=== PATIENT | male | born 1980 | race Caucasian/White ===

== ENCOUNTER 2017-08-28 18:00 | Emergency (ER) | payer OTHER ==
[2017-08-28 19:43] LABS: BASOPHILS # (AUTO) 0.1 10^3/uL (0.0-0.1); EOSINOPHILS # (AUTO) 0.2 10^3/uL (0.0-0.7); HGB - HEMOGLOBIN 14.2 g/dL (14.0-18.0); LYMPHOCYTES # (AUTO) 2.2 10^3/uL (1.5-3.5); LYMPHOCYTES % (AUTO) 29.1 %; MEAN CORPUSCULAR HGB CONC 32.9 g/dL (32.0-36.0); MEAN CORPUSCULAR VOLUME 94.1 fL (80.0-94.0); MEAN PLATELET VOLUME 8.1 fL (7.4-11.4); MONOCYTES # (AUTO) 0.6 10^3/uL (0.0-1.0); NEUTROPHILS # (AUTO) 4.5 10^3/uL (1.5-6.6); NEUTROPHILS % (AUTO) 58.9 %; PLT - PLATELET COUNT 268 10^3/uL (130-450); RED BLOOD COUNT 4.57 10^6/uL (4.70-6.10); WHITE BLOOD COUNT 7.7 x10^3/uL (4.8-10.8)
[2017-08-28] MEDS ORDERED: ALBUTEROL NEB 2.5 MG/3 ML INH STA (19:44)
[2017-08-28 19:46] LABS: MUDS CUTOFF CONCENTRATIONS CUTOFF CONC BELOW:
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
[2017-08-28] MEDS ORDERED: NICOTINE 14 MG PATCH TOP STA (19:55)
[2017-08-28 19:58] LABS: ALBUMIN 4.4 g/dL (3.2-5.5); ALBUMIN/GLOBULIN RATIO 1.5 (1.0-2.2); ALKALINE PHOSPHATASE 52 IU/L (42-121); ALT ALANINE AMINOTRANSFERASE 22 IU/L (10-60); AST ASPARTATE AMINOTRANSFERASE 22 IU/L (10-42); BILIRUBIN,TOTAL 0.8 mg/dL (0.2-1.0); BUN - BLOOD UREA NITROGEN 14 mg/dL (6-20); CALCIUM 9.2 mg/dL (8.5-10.3); CARBON DIOXIDE - CO2 26 mmol/L (21-32); CHLORIDE 104 mmol/L (101-111); CREATININE 0.9 mg/dL (0.6-1.2); GFR - MDRD 95 (>89); GLUCOSE 94 mg/dL (70-100); LIPASE 27 U/L (22-51); SALICYLATE < 6.0 mg/dL; SODIUM 137 mmol/L (135-145); TOTAL PROTEIN 7.4 g/dL (6.7-8.2)
[2017-08-28 19:59] LABS: BILIRUBIN,URINE NEGATIVE (NEGATIVE); GLUCOSE, URINE (UA) NEGATIVE (NEGATIVE); KETONES,URINE (UA) NEGATIVE (NEGATIVE); LEUKOCYTE ESTERASE, URINE NEGATIVE (NEGATIVE); NITRITE,URINE NEGATIVE (NEGATIVE); OCCULT BLOOD,URINE SMALL (NEGATIVE); PH,URINE 6.5 PH (5.0-7.5); PROTEIN,URINE NEGATIVE (NEGATIVE); UROBILINOGEN,URINE 0.2 (NORMAL) E.U./dL (NORMAL)
[2017-08-28 20:03] LABS: CLARITY,URINE CLEAR (CLEAR)
[2017-08-28 20:10] LABS: AMPHETAMINE SCREEN,URINE NEGATIVE (NEGATIVE); BACTERIA,URINE None Seen /HPF (None Seen); BENZODIAZEPINES SCREEN, URINE NEGATIVE (NEGATIVE); COCAINE SCREEN URINE NEGATIVE (NEGATIVE); METHADONE SCREEN, URINE NEGATIVE (NEGATIVE); METHAMPHETAMINES SCREEN, URINE NEGATIVE (NEGATIVE); OPIATE SCREEN, URINE NEGATIVE (NEGATIVE); OXYCODONE SCREEN, URINE NEGATIVE (NEGATIVE); PROPOXYPHENE SCREEN, URINE NEGATIVE (NEGATIVE); RBC,URINE 0-5 /HPF (0-5); SQUAMOUS EPITHELIAL CELL,UR NONE SEEN (<= Few); TRICYCLIC ANTIDEPRESSANT,URINE NEGATIVE (NEGATIVE)
[2017-08-28 20:16] LABS: ACETAMINOPHEN < 10 ug/mL (10-30)
[2017-08-29] MEDS ORDERED: LORazepam 0.5 MG TABLET PO STA (01:54)
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
[2017-08-29] MEDS ORDERED: ALBUTEROL NEB 2.5 MG/3 ML INH STA (10:18)
[2017-08-29] MEDS ORDERED: ALBUTEROL NEB 2.5 MG/3 ML INH ONE (10:30)
[2017-08-29 12:02] VITALS: BP 106/68
[2017-08-29] MEDS ORDERED: IBUPROFEN 800 MG TABLET PO STA (12:25)
[2017-08-29] MEDS ORDERED: NICOTINE 14 MG PATCH TOP STA (12:25)
== END 2017-08-29 21:35 | disposition left against medical advice (07) ==
LOC: ED 18:00
DX: F33.2 Major depressive disorder, recurrent severe without psychotic features (principal)
CPT/HCPCS: 36415; 80053; 80306; 80307; 80320; 80329; 81001; 83690; 85025; 94640; 99283; 99284; A9270; 81003; 87086

== ENCOUNTER 2017-11-24 07:43 | Outpatient (CLI) | payer OTHER ==
--- NOTE | 2017-11-26 10:02 | MRI Report ---
Procedure Date: 11/24/2017 Accession Number: [id number] / [id number] Procedure: MRI - Shoulder RT W/O CPT Code: FULL RESULT: EXAM: RIGHT SHOULDER MRI WITHOUT CONTRAST EXAM DATE: 11/24/2017 08:40 AM. CLINICAL HISTORY: Right shoulder pain. COMPARISON: 11/18/2017 right shoulder radiographs. TECHNIQUE: Multiplanar, multisequence T1-weighted and fluid-sensitive sequences of the shoulder without contrast. Other: None. FINDINGS: Acromioclavicular Region: The acromion is type II. There are small marginal osteophytes at the acromioclavicular joint with minimal capsular thickening but no visible subchondral edema or significant mass effect on the supraspinatus tendon. The coracoacromial and coracoclavicular ligaments are intact. There is a small amount of fluid within the subacromial-subdeltoid bursa. Glenohumeral Region: No subluxation. No effusion or loose bodies. The articular cartilage is unremarkable. The glenohumeral ligaments and joint capsule are unremarkable. Bone Marrow: No fracture, marrow edema or bone lesions. Labrum: The labrum is unremarkable on this nonarthrographic study. Musculature/Rotator Cuff: There is intermediate signal and thickening of the distal supraspinatus tendon without supraspinatus tendon tear. The infraspinatus, teres minor, and subscapularis tendons are intact. No edema or fatty atrophy. Biceps Tendon: The long head of the biceps tendon and biceps chris are intact. Other: The subcutaneous tissues are unremarkable. IMPRESSION: 1. Mild-moderate distal supraspinatus tendinosis without rotator cuff tendon tear. 2. Subacromial-subdeltoid bursitis. 3. Minimal acromioclavicular joint osteoarthrosis. [facility] MUSCULOSKELETAL RADIOLOGY SECTION
== END 2017-11-24 07:44 | disposition home or self-care (01) ==
LOC: DI 07:43
PROVIDERS: ATTEND Orthopaedic Surgery
DX: S43.491S Other sprain of right shoulder joint, sequela (principal); M75.51 Bursitis of right shoulder; M19.011 Primary osteoarthritis, right shoulder

== ENCOUNTER 2017-12-27 10:48 | Emergency (ER) | payer OTHER ==
[2017-12-27 10:54] VITALS: BP 138/78
--- NOTE | 2017-12-27 11:29 | XRAY Report ---
Reason: wrist pain after fall Procedure Date: 12/27/2017 Accession Number: [id number] / [id number] Procedure: XR - Wrist 4 View RT CPT Code: FULL RESULT: EXAM: RIGHT WRIST RADIOGRAPHY EXAM DATE: 12/27/2017 11:19 AM. CLINICAL HISTORY: Wrist pain after fall. COMPARISON: None. TECHNIQUE: 3 views. FINDINGS: Bones: Normal. No fractures or bone lesions. Joints: Normal. No subluxations. Soft Tissues: Normal. No soft tissue swelling. IMPRESSION: Normal wrist radiography. [facility]
--- NOTE | 2017-12-27 11:38 | ED Physician Documentation ---
PD HPI UPPER EXT INJURY - Stated complaint Stated Complaint: R WRIST INJ - Chief complaint Chief Complaint: Ext Problem - History obtained from History obtained from: Patient, Family - History of Present Illness Location: Right, Wrist Type of injury: Fall Where injury occurred: Home Timing - onset: How many days ago (3) Timing - duration: Days (3) Timing - details: Abrupt onset, Still present Improved by: Rest, Immobilization Worsened by: Moving, Palpating Associated symptoms: Swelling. No: Weakness, Numbness Contributing factors: No: Anticoagulated Similar symptoms before: Has not had sx before Recently seen: Not recently seen - Additonal information Additional information: 37-year-old male was cleaning out a rental car when he stepped back outside and tripped over something fell onto his outstretched right hand. He has pain in the lateral aspect of his wrist and he has not been able to open doors or pull on things without significant pain. Review of Systems Constitutional: denies: Fever Nose: denies: Congestion Respiratory: denies: Cough GI: denies: Vomiting Skin: denies: Rash Musculoskeletal: reports: Extremity pain, Joint pain, Joint swelling. denies: Neck pain, Back pain Neurologic: denies: Generalized weakness, Focal weakness, Numbness PD PAST MEDICAL HISTORY - Past Medical History Past Medical History: Yes Respiratory: Asthma Psych: Depression, Anxiety - Past Surgical History Past Surgical History: Yes General: Appendectomy - Present Medications Home Medications: Ambulatory Orders Medication Instructions Recorded Confirmed Cholecalciferol [Vitamin D3] 5,000 unit ORAL DAILY 08/28/17 12/27/17 Albuterol Sulf [Ventolin Hfa 1 - 2 puffs INH Q4HR PRN 12/27/17 12/27/17 Inhaler] Citalopram [CeleXA] 10 mg PO DAILY 12/27/17 12/27/17 Ipratropium/Albuterol [Duoneb] 3 ml INH ONCE 12/27/17 12/27/17 - Allergies Allergies/Adverse Reactions: Allergies Allergy/AdvReac Type Severity Reaction Status Date / Time No Known Drug Allergies Allergy Verified 12/27/17 10:54 - Social History Does the pt smoke?: No Smoking Status: Never smoker Does the pt drink ETOH?: Yes Does the pt have substance abuse?: Yes - Immunizations Immunizations are current?: Yes PD ED PE NORMAL - Vitals Vital signs reviewed: Yes (hypertensive mild ) - General General: Alert and oriented X 3, No acute distress, Well developed/nourished - HEENT HEENT: Atraumatic, PERRL, EOMI - Neck Neck: Supple, no meningeal sign - Respiratory Respiratory: No respiratory distress - Derm Derm: Normal color, Warm and dry, No rash - Extremities Extremities: No deformity, Other (There is point tenderness over the distal ulna and pain with flexion/extension of the wrist. 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, No motor deficit, No sensory deficit, Normal speech Eye Opening: Spontaneous Motor: Obeys Commands Verbal: Oriented GCS Score: 15 - Psych Psych: Normal mood, Normal affect Results - Vitals Vitals: Vital Signs - 24 hr 12/27/17 10:51 Temperature 36.5 C Heart Rate 75 Respiratory 18 Rate Blood Pressure 138/78 H O2 Saturation 97 Oxygen O2 Source Room air - Rads (name of study) right wrist Radiology: Prelim report reviewed (Impression: Normal wrist radiography.), EMP read indepedently, See rad report Procedures - Splint (location) right wrist Splint applied by: Tech Type of splint: Fiberglass, Volar cock up Other: Patient tolerated well, No complications, Neurovascular intact, Good alignment PD MEDICAL DECISION MAKING - ED course Complexity details: reviewed results, re-evaluated patient, considered differential, d/w patient, d/w family ED course: 37-year-old male with a sprained right wrist 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 He will need a note for work for 2 weeks. He is placed into a volar splint. - Sepsis Event Vital Signs: Vital Signs - 24 hr 12/27/17 10:51 Temperature 36.5 C Heart Rate 75 Respiratory 18 Rate Blood Pressure 138/78 H O2 Saturation 97 Oxygen O2 Source Room air Departure - Departure Disposition: 01 Home, Self Care Clinical Impression: Right wrist sprain Qualifiers: Encounter type: initial encounter Qualified Code(s): S63.501A - Unspecified sprain of right wrist, initial encounter Condition: Stable Instructions: ED Sprain Wrist Follow-Up: Malcolm Prado MD [Primary Care Provider] - Forms: Activity restrictions
== END 2017-12-27 11:54 | disposition home or self-care (01) ==
LOC: ED 10:48
DX: S63.501A Unspecified sprain of right wrist, initial encounter (principal); W18.09XA Striking against other object with subsequent fall, initial encounter; Y92.009 Unspecified place in unspecified non-institutional (private) residence as the place of occurrence of the external cause
CPT/HCPCS: 29125; 99282; 99283